=== PATIENT | female | born 1985 | race Two or more races ===

== ENCOUNTER 2016-06-19 11:12 | Outpatient (CLI) | payer MEDICARE, MEDICAID | END 2016-06-19 11:13 | disposition home or self-care (01) | DX: R51 Headache (principal); R73.01 Impaired fasting glucose ==

== ENCOUNTER 2016-08-29 13:25 | Outpatient (CLI) | payer MEDICARE, MEDICAID | END 2016-08-29 13:26 | disposition home or self-care (01) | DX: R51 Headache (principal); R73.01 Impaired fasting glucose; F41.9 Anxiety disorder, unspecified; E66.9 Obesity, unspecified ==

== ENCOUNTER 2018-04-22 15:04 | Outpatient (CLI) | payer MEDICARE, MEDICAID ==
--- NOTE | 2018-04-22 17:41 | XRAY Report ---
Reason: WRIST,JOINT PAIN,RIGHT Procedure Date: 04/22/2018 Accession Number: [id number] / [id number] Procedure: XR - Wrist 2 View RT CPT Code: FULL RESULT: EXAM: RIGHT WRIST RADIOGRAPHY EXAM DATE: 04/22/2018 03:20 PM. CLINICAL HISTORY: Wrist, joint PAIN,RIGHT. COMPARISON: None. TECHNIQUE: 2 views. FINDINGS: Bones: No fracture or focal bony lesion. Joints: No evidence of dislocation. Soft Tissues: No unexpected soft tissue findings. IMPRESSION: Submitted images demonstrate no evidence of fracture or dislocation. If there is concern for scaphoid fracture, dedicated ulnar deviated scaphoid view could be used for further evaluation. [facility]
== END 2018-04-22 15:05 | disposition home or self-care (01) ==
LOC: DI 15:04
PROVIDERS: ATTEND Nurse Practitioner Family
DX: M25.531 Pain in right wrist (principal)

== ENCOUNTER 2018-06-18 13:37 | Outpatient (CLI) | payer MEDICARE, MEDICAID ==
[2018-06-18 17:38] LABS: BASOPHILS % (AUTO) 0.3 %; EOSINOPHILS # (AUTO) 0.2 10^3/uL (0.0-0.7); EOSINOPHILS % (AUTO) 3.4 %; HGB - HEMOGLOBIN 12.7 g/dL (12.0-16.0); LYMPHOCYTES # (AUTO) 2.1 10^3/uL (1.5-3.5); LYMPHOCYTES % (AUTO) 27.9 %; MEAN CORPUSCULAR HEMOGLOBIN 28.8 pg (27.0-31.0); MEAN CORPUSCULAR HGB CONC 33.4 g/dL (32.0-36.0); MEAN CORPUSCULAR VOLUME 86.3 fL (81.0-99.0); MEAN PLATELET VOLUME 8.4 fL (7.9-10.8); MONOCYTES # (AUTO) 0.7 10^3/uL (0.0-1.0); MONOCYTES % (AUTO) 9.8 %; NEUTROPHILS # (AUTO) 4.3 10^3/uL (1.5-6.6); NEUTROPHILS % (AUTO) 58.6 %; PLT - PLATELET COUNT 235 10^3/uL (130-450); RED CELL DISTRIBUTION WIDTH 13.4 % (12.0-15.0); WHITE BLOOD COUNT 7.3 x10^3/uL (4.8-10.8)
[2018-06-18 18:05] LABS: HB2 TOTAL 13.2 g/dL; HEMOGLOBIN A1C 0.49 g/dL; HEMOGLOBIN A1C % 5.5 % (4.6-6.2)
[2018-06-18 18:37] LABS: ALBUMIN 4.3 g/dL (3.2-5.5); ALBUMIN/GLOBULIN RATIO 1.4 (1.0-2.2); BILIRUBIN,TOTAL 0.4 mg/dL (0.2-1.0); CREATININE 0.5 mg/dL (0.4-1.0); TOTAL PROTEIN 7.4 g/dL (6.7-8.2)
[2018-06-18 18:42] LABS: CALCIUM 8.8 mg/dL (8.5-10.3)
== END 2018-06-18 13:38 | disposition home or self-care (01) ==
LOC: LAB.F 13:37
PROVIDERS: ATTEND Nurse Practitioner Family
DX: R19.7 Diarrhea, unspecified (principal); R73.01 Impaired fasting glucose
CPT/HCPCS: 36415; 80053; 83036; 84443; 85025

== ENCOUNTER 2019-05-09 08:00 | Outpatient (CLI) | payer MEDICARE, MEDICAID ==
[2019-05-09 17:56] LABS: BASOPHILS % (AUTO) 0.3 %; EOSINOPHILS # (AUTO) 0.2 10^3/uL (0.0-0.7); EOSINOPHILS % (AUTO) 3.7 %; HGB - HEMOGLOBIN 13.5 g/dL (12.0-16.0); LYMPHOCYTES # (AUTO) 2.2 10^3/uL (1.5-3.5); LYMPHOCYTES % (AUTO) 34.1 %; MEAN CORPUSCULAR HEMOGLOBIN 28.4 pg (27.0-31.0); MEAN CORPUSCULAR HGB CONC 32.4 g/dL (32.0-36.0); MEAN CORPUSCULAR VOLUME 87.8 fL (81.0-99.0); MONOCYTES # (AUTO) 0.7 10^3/uL (0.0-1.0); MONOCYTES % (AUTO) 10.2 %; NEUTROPHILS # (AUTO) 3.4 10^3/uL (1.5-6.6); NEUTROPHILS % (AUTO) 51.4 %; PLT - PLATELET COUNT 293 10^3/uL (130-450); RED BLOOD COUNT 4.75 10^6/uL (4.20-5.40); RED CELL DISTRIBUTION WIDTH 13.1 % (12.0-15.0); WHITE BLOOD COUNT 6.6 x10^3/uL (4.8-10.8)
[2019-05-09 18:32] LABS: ALBUMIN/GLOBULIN RATIO 1.5 (1.0-2.2); ALKALINE PHOSPHATASE 69 IU/L (42-121); ALT ALANINE AMINOTRANSFERASE 17 IU/L (10-60); AST ASPARTATE AMINOTRANSFERASE 20 IU/L (10-42); BILIRUBIN,TOTAL 0.5 mg/dL (0.2-1.0); BUN - BLOOD UREA NITROGEN 13 mg/dL (6-20); CARBON DIOXIDE - CO2 28 mmol/L (21-32); CHLORIDE 101 mmol/L (101-111); CREATININE 0.6 mg/dL (0.4-1.0); GFR - MDRD 114 (>89); GLUCOSE 100 mg/dL (70-100); SODIUM 139 mmol/L (135-145); TOTAL PROTEIN 8.4 g/dL (6.7-8.2)
[2019-05-09 19:30] LABS: VALPROIC ACID (DEPAKOTE) < 10.0 ug/mL
== END 2019-05-09 23:59 | disposition home or self-care (01) ==
LOC: LAB.S 08:00
PROVIDERS: ATTEND Psychiatry & Neurology Neurology
DX: G40.909 Epilepsy, unspecified, not intractable, without status epilepticus (principal); G43.019 Migraine without aura, intractable, without status migrainosus
CPT/HCPCS: 36415; 80053; 80164; 80175; 84443; 85025

== ENCOUNTER 2020-04-02 13:16 | Outpatient (CLI) | payer MEDICARE, MEDICAID ==
--- NOTE | 2020-04-03 15:48 | Mammography Report ---
BILATERAL DIGITAL SCREENING MAMMOGRAM 3D/2D: 04/02/2020 CLINICAL: Routine screening. Baseline exam. No prior exams were available for comparison. The tissue of both breasts is heterogeneously dense. T his may lower the sensitivity of mammography. There is a 0.9 cm equal density asymmetry in the left breast at 1 o'clock middle depth. No other significant masses, calcifications, or other findings are seen in either breast. IMPRESSION: INCOMPLETE: NEEDS ADDITIONAL IMAGING EVALUATION The 0.9 cm equal density asymmetry in the left breast is indeterminate. Additional views with possib le ultrasound are recommended. This exam was interpreted at Station ID: [id number]. NOTE: For mammograms, a report in lay terms will be sent to the patient. Approximately 15% of breast malignancies will not be visualized mammographically. In the management of a palpable breast mass, a negative mammogram must not discourage biopsy of a clinically suspicious lesion. Electronically Signed By: Catrachito Henderson M.D. aty/cristinarad:04/03/2020 07:18:48 ACR BI-RADS Category 0: Incomplete 3340F PARENCHYMAL PATTERN: (D) - The breast(s) demonstrate(s) heterogeneously dense fibroglandular gagandeep dietz. BI-RADS CATEGORY: (0) - 0 Mammo and US [id number] Immediate follow-up LATERALITY: (L)
== END 2020-04-02 13:17 | disposition home or self-care (01) ==
LOC: DI 13:16
PROVIDERS: ATTEND Family Medicine
DX: Z12.31 Encounter for screening mammogram for malignant neoplasm of breast (principal); Z80.3 Family history of malignant neoplasm of breast; R92.8 Other abnormal and inconclusive findings on diagnostic imaging of breast
CPT/HCPCS: 77063; 77067

== ENCOUNTER 2020-04-24 09:59 | Outpatient (CLI) | payer MEDICARE, MEDICAID ==
--- NOTE | 2020-04-25 15:34 | Mammography Report ---
UNILATERAL LEFT DIGITAL DIAGNOSTIC MAMMOGRAM 3D/2D: 04/24/2020 CLINICAL: Patient returns today to evaluate asymmetry in left breast. Comparison is made to exam dated: 04/02/2020 mammogram - formerly [facility]. The tissue o f left breast is heterogeneously dense. This may lower the sensitivity of mammography. Redemonstration of previously described 0.9 cm equal density asymmetry in the left breast at 1 o'cloc k posterior depth. This is less prominent and decreased in size. It almost completely disperses on spot compression views. No other significant masses or calcifications are seen in the breast. IMPRESSION: INCOMPLETE: NEEDS ADDITIONAL IMAGING EVALUATION The previously described equal density asymmetry in the left breast demonstrates near complete dispe rsion and is favored to represent dense focus of fibroglandular tissue but remains indeterminate. An ultrasound is recommended for further evaluation and is scheduled to immediately follow this study . This exam was interpreted at Station ID: [id number]. NOTE: For mammograms, a report in lay terms will be sent to the patient. Approximately 15% of breast malignancies will not be visualized mammographically. In the management of a palpable breast mass, a negative mammogram must not discourage biopsy of a clinically suspicious lesion. Electronically Signed By: Catrachito Henderson M.D. aty/:04/24/2020 12:36:40 ACR BI-RADS Category 0: Incomplete 3340F PARENCHYMAL PATTERN: (D) - The breast(s) demonstrate(s) heterogeneously dense fibroglandular gagandeep dietz. BI-RADS CATEGORY: (0) - 0 Ultrasound [id number] Immediate follow-up LATERALITY: (L)
--- NOTE | 2020-04-25 15:34 | Ultrasound Report ---
LIMITED ULTRASOUND OF LEFT BREAST: 04/24/2020 CLINICAL: Patient returns today to evaluate a focal asymmetry in the left breast. Comparison is made to exams dated: 04/24/2020 mammogram and 04/02/2020 mammogram - [facility]. Real-time ultrasound of the left breast 2-3 o'clock region was performed. Jimenez scale images of the real-time examination were reviewed. No significant abnormalities were seen sonographically in the left breast. IMPRESSION: PROBABLY BENIGN There is no abnormality seen in the left breast to correspond with the area of clinical concern and m ammography finding which likely represent normal fibroglandular tissue. A follow-up left mammogram with possible left ultrasound in 6 months is recommended to demonstrate st ability. Findings and recommendations were conveyed to the patient during today's evaluation. This exam was interpreted at Station ID: [id number]. Electronically Signed By: Catrachito Henderson M.D. aty/:04/24/2020 12:38:17 Ultrasound BI-RADS: 3 Probably benign BI-RADS CATEGORY: (3) - 3 Mammo and [place] [id number] 6 month follow-up LATERALITY: (L)
== END 2020-04-24 10:00 | disposition home or self-care (01) ==
LOC: DI 09:59
PROVIDERS: ATTEND Family Medicine
DX: R92.8 Other abnormal and inconclusive findings on diagnostic imaging of breast (principal)
CPT/HCPCS: 76642